=== PATIENT | male | born 1950 | race Caucasian/White ===

== ENCOUNTER 2023-06-20 09:21 | Emergency (ER) | payer MEDICARE, OTHER, SELFPAY ==
[2023-06-20] VITALS (7 sets, daily range): BP systolic 161–193; BP diastolic 78–92; PULSE 70–90; RESP 16; TEMP 36.7; O2SAT 96–99; BMI 36.2
--- NOTE | 2023-06-20 09:54 | DI.US.S_ITS ---
PROCEDURE: US SCROTUM INDICATIONS: R TESTICLE SWELLING TECHNIQUE: Real-time scanning was performed of the scrotum and testicles, with image documentation. Color and pulse Doppler interrogation was performed of both testicles. COMPARISON: None. FINDINGS: Right: Testicle is normal in size at 4.4 x 2.8 x 2.3 cm, and homogenous in echotexture. Epididymis is not definitively identified, however, there is a isoechoic extra testicular homogeneous lesion measuring 3.8 x 3.7 x 3.5 cm. No associated hypervascularity. No hydrocele or varicoceles. Scrotal wall is thickened at 1.4 cm, there is a large multiloculated hydrocele present. Left: Testicle is normal in size at 4.5 x 2.3 x 2.8 cm, and homogeneous in echotexture. Epididymis is normal in overall size and morphology. No hydrocele or varicoceles. Mild scrotal wall thickening and small hydrocele noted. 5 mm epididymal cyst Doppler: Color and pulse Doppler demonstrate normal and symmetric arterial flow in both testicles. IMPRESSION: Thickened hypervascular scrotal wall asymmetric to the right with underlying loculated hydrocele consistent with scrotal cellulitis. No evidence of testicular torsion. Right extratesticular nonvascular mass lesion, 3.8 cm Approved by: Vincenzo Viera M.D. on 06/20/2023 at 12:59
--- NOTE | 2023-06-20 11:21 | ED_ITS ---
HPI - Male Genitourinary General Chief complaint: Urogenital-Male Stated complaint: scrotum swelled up big per pt Time Seen by Provider: 06/20/23 09:27 Source: patient Mode of arrival: Ambulatory History of Present Illness HPI Narrative: 73-year-old male presents for 1 week of right-sided scrotal swelling and pain. Patient states that 1 week ago he was seen for scrotal pain and swelling at the [facility]. He was discharged on Bactrim, which he states initially improved his pain and it was almost gone 3 days later, however it gradually returned in his now worse despite being compliant with the Bactrim he was prescribed. Denies pain with urination, fevers, chills, urethral discharge. Denies history of STIs. Related Data Previous Rx's Medication Instructions Recorded albuterol sulfate 0.63 mg/3 mL 0.63 mg (3 mL) INH Q4HP PRN #30 ea 07/09/16 solution for nebulization doxycycline hyclate 100 mg capsule 100 mg PO BID #20 caps 06/20/23 hydrocodone 5 mg-acetaminophen 325 1 tab PO Q8H PRN pain #14 tabs 06/20/23 mg tablet Allergies Allergy/AdvReac Type Severity Reaction Status Date / Time Penicillins Allergy Severe Headache Verified 06/20/23 09:54 esomeprazole [From NEXIUM] Allergy Unknown Verified 06/20/23 09:54 Review of Systems Review of Systems Narrative: Negative except as noted above Patient History Social History Smoking Status: Former smoker Smoking Status: Former smoker alcohol intake frequency: 0-2 drinks per day Substance Use Type: does not use Exam Initial Vital Signs Initial Vital Signs: Vital Signs Temperature 98.1 F 06/20/23 09:47 Pulse Rate 70 06/20/23 09:47 Respiratory Rate 16 06/20/23 09:47 Blood Pressure 161/78 H 06/20/23 09:47 Pulse Oximetry 99 06/20/23 09:47 Oxygen Delivery Method Room Air 06/20/23 09:47 Const: Awake, alert, no acute distress, nontoxic appearing Cardiac: regular rate, regular rhythm RESP: unlabored, clear bilaterally, no wheezing GI: Atraumatic, soft, nontender, nondistended, no rebound, no guarding : Employment Legal [employer] present, right testicle swollen, erythematous, induration on the lower aspect. Penis normal, left testicle normal MSK: Atraumatic, full range of motion, pulses equal Skin: Warm, Dry, intact, no rashes Neuro: AO x3, CN II-XII grossly intact, moves all extremities, walks with a cane at baseline Psych: affect normal, mood normal, not suicidal, not homicidal Course Orders Ordered: ED Orders 06/20/23 09:54 US scrotum Stat 06/20/23 11:36 CBC Auto Diff [Complete Blood Count AUTO DIFF] Stat CMP [Comprehensive Metabolic Panel] Stat Vital Signs Vital signs: Vital Signs - 8 hr 06/20/23 09:47 06/20/23 12:29 06/20/23 12:29 Temperature 98.1 F Pulse Rate 70 71 Respiratory Rate 16 Blood Pressure 161/78 H 193/92 H Pulse Oximetry 99 99 Oxygen Delivery Method Room Air 06/20/23 12:30 06/20/23 12:31 06/20/23 12:31 Temperature Pulse Rate 90 70 Respiratory Rate Blood Pressure 169/85 H Pulse Oximetry 98 98 Oxygen Delivery Method 06/20/23 13:00 06/20/23 13:00 06/20/23 13:30 Temperature Pulse Rate 79 71 Respiratory Rate Blood Pressure 178/83 H Pulse Oximetry 97 97 Oxygen Delivery Method 06/20/23 13:30 06/20/23 14:00 06/20/23 14:00 Temperature Pulse Rate 73 Respiratory Rate Blood Pressure 184/88 H 180/84 H Pulse Oximetry 96 Oxygen Delivery Method MDM - Male Genitourinary Lab Data 06/20/23 11:36 06/20/23 11:36 Labs: Lab Results 06/20/23 Range/Units 11:36 WBC 7.2 (4.5-11.0) X10^3/uL RBC 4.48 L (4.5-5.9) X10^6/uL Hgb 14.0 (13.5-17.5) g/dL Hct 40.4 L (41-53) % MCV 90.2 (80-100) fL MCH 31.2 (26-34) PG MCHC 34.6 (30-36) % RDW 12.8 (11.6-14.8) % Plt Count 199 (150-400) X10^3/uL Neut % (Auto) 66.8 (50-75) % Lymph % (Auto) 18.3 L (25-40) % Dawes % (Auto) 10.4 (3-14) % Eos % (Auto) 3.3 (2-4) % Baso % (Auto) 1.2 (0-2) % Neut # (Auto) 4800 (4840-7292) /uL Lymph # (Auto) 1300 (0119-7570) /uL Dawes # (Auto) 700 (0-900) /uL Eos # (Auto) 200 (0-450) /uL Baso # (Auto) 100 (0-100) /uL Sodium 139 (137-145) mmol/L Potassium 4.4 (3.4-5.1) mmol/L Chloride 106 (98-107) mmol/L Carbon Dioxide 22 (22-32) mmol/L BUN 13 (9-20) mg/dL Creatinine 0.92 (0.66-1.25) mg/dL Estimated GFR > 60 (>60) mL/min BUN/Creatinine Ratio 14.1 (6-22) Glucose 120 H (80-110) mg/dL Calcium 9.6 (8.4-10.2) mg/dL Total Bilirubin 0.7 (0.2-1.3) mg/dL AST 31 (17-59) IU/L ALT 27 (<50) IU/L Alkaline Phosphatase 80 (38-126) U/L Total Protein 8.0 (6.3-8.2) g/dL Albumin 4.4 (3.5-5.0) g/dL Globulin 3.6 (1.7-4.1) g/dL Albumin/Globulin Ratio 1.2 (1.0-2.8) Urine Dip Bedside Urine Glucose Negative Bedside Urine Bilirubin - Negative Bedside Urine Ketone - Negative Urine Specific Ligonier 1.030 Bedside Urine Occult Blood - Negative Bedside Urine pH 5.5 Bedside Urine Protein - Negative Bedside Urine Urobilinogen - Negative Bedside Urine Nitrite - Negative Bedside Urine Leukocytes - Negative Esterase MDM Narrative Medical decision making narrative: Well-appearing patient with persistent scrotal swelling and pain. Scrotum is tender to touch with erythema and induration. Less suspicious for torsion due to duration of onset and intact cremasteric reflex. We will order labs and ultrasound imaging. Laboratory work shows no leukocytosis, normal creatinine. Urinalysis negative for infection. Ultrasound of the scrotum shows a noninfectious cystic hydrocele, thickening of the scrotal skin concerning for cellulitis, no abscess or other concerning findings. Patient resting comfortably in bed, he was informed of his lab and imaging results. We will change Bactrim to doxycycline. Sent to pharmacy of choice. Patient was counseled that if he does not notice improvement in 48 hours he should return as he may need IV antibiotics due to failure of outpatient treatment. Patient says that [facility] and we will monitor his scrotal swelling during that time. Pain medication sent to pharmacy of choice. Also counseled on testicular elevation and ice application. ED return precautions discussed at bedside. Patient expressed understanding of the plan and is in agreement at this time. All questions answered at the time of discharge. Discharge Plan Departure Patient Disposition: Home Clinical Impression: Cellulitis, scrotum Instructions: DI for Cellulitis -- Adult Prescriptions: New doxycycline hyclate 100 mg capsule 100 mg PO BID Qty: 20 0RF hydrocodone-acetaminophen 5-325 mg tablet 1 tab PO Q8H PRN (Reason: pain) Qty: 14 0RF No Action albuterol sulfate 0.63 MG/3 ML solution for nebulization 0.63 mg INH Q4HP PRNQty: 30 0RF Stand Alone Forms: Patient Portal/API
[2023-06-20 11:44] LABS: Add Manual Diff / Slide Review NO; Basophils Absolute Auto 100 /uL (0-100); Basophils Percent Auto 1.2 % (0-2); Eosinophils Absolute Auto 200 /uL (0-450); Eosinophils Percent Auto 3.3 % (2-4); Hematocrit 40.4 % (41-53); Lymphocytes Absolute Auto 1300 /uL (1100-4500); Lymphocytes Percent Auto 18.3 % (25-40); Mean Corpuscular HGB Conc 34.6 % (30-36); Mean Corpuscular Hemoglobin 31.2 PG (26-34); Mean Corpuscular Volume 90.2 fL (80-100); Monocytes Absolute Auto 700 /uL (0-900); Monocytes Percent Auto 10.4 % (3-14); Neutrophils Absolute Auto 4800 /uL (1500-7000); Neutrophils Percent Auto 66.8 % (50-75); Platelet Count 199 X10^3/uL (150-400); Red Blood Cell Count 4.48 X10^6/uL (4.5-5.9); Red Cell Distribution Width 12.8 % (11.6-14.8); White Blood Cell Count 7.2 X10^3/uL (4.5-11.0)
[2023-06-20 12:07] LABS: Alanine Aminotransferase 27 IU/L (<50); Albumin 4.4 g/dL (3.5-5.0); Albumin Globulin Ratio 1.2 (1.0-2.8); Alkaline Phosphatase 80 U/L (38-126); Aspartate Aminotransferase 31 IU/L (17-59); BUN Creatinine Ratio 14.1 (6-22); Bilirubin Total 0.7 mg/dL (0.2-1.3); Blood Urea Nitrogen 13 mg/dL (9-20); Calcium 9.6 mg/dL (8.4-10.2); Carbon Dioxide 22 mmol/L (22-32); Chloride 106 mmol/L (98-107); Estimated Glomerular Filt Rate > 60 mL/min (>60); Globulin 3.6 g/dL (1.7-4.1); Glucose 120 mg/dL (80-110); HEMOLYSIS < 15 (0-50); Potassium 4.4 mmol/L (3.4-5.1); Sodium 139 mmol/L (137-145)
== END 2023-06-20 14:21 | disposition home or self-care (01) ==
PROVIDERS: Emergency Provider Emergency Medicine
DX: N49.2 Inflammatory disorders of scrotum (principal)
CPT/HCPCS: 36415; 76870; 80053; 81003; 85025; 93975; 99284

== ENCOUNTER → 2023-09-03 08:46 | Outpatient (CLI) | payer OTHER, SELFPAY ==
--- NOTE | 2023-09-03 08:48 | DI.ECHO.S_ITS ---
[facility]+ [facility] : : [address] : : [place] : : [id number] : : Phone: [phone] Echocardiogram Report + + :Name: CARLOS EPSTEIN Study Date: 09/03/2023 Height: 71 in : :Hospital ReadingLocation: Weight: 266 lb : : Gender: Male BSA: 2.4 m2 : :: 1950 Age: 73 yrs BP: 174/97 mmHg: :Reason For Study: ENCOUNTER FOR GENERAL ADULT EXAMINATION : :Ordering Physician: JAMES, : :DAISHA Performed By: Valery Shipley : :Referring: DAISHA RAMIREZ : + + Interpretation Summary Normal sinus rhythm and uncontrolled hypertension. Normal LV size; mild concentric LVH; normal wall motion and LV systolic function. EF is 55-60%. Mild LA enlargement; otherwise normal chamber sizes. No significant valvular abnormalities. No prior study available for comparison. Procedure: A two-dimensional transthoracic echocardiogram with color flow and Doppler was performed. The study quality was technically adequate. There is no prior echocardiogram noted for this patient. The patient was in sinus rhythm with heart rates between 52-67 bpm during the exam. Left Ventricle: The left ventricle is normal in size. There is mild concentric left ventricular hypertrophy. The ejection fraction is estimated to be 55-60%. Right Ventricle: The right ventricle is normal in size and function. Atria: The left atrium is mildly dilated. The right atrium is normal in size. There is no Doppler evidence for an interatrial shunt. Mitral Valve: The mitral valve is normal in structure and function. There is mild mitral regurgitation. Aortic Valve: The aortic valve is trileaflet. The aortic valve is slightly calcified. There is moderate aortic valve sclerosis. The peak aortic velocity is 1.9 m/sec. The aortic valve mean gradient is 8 mmHg. The calculated aortic valve area is 1.6 cm2. No aortic regurgitation is present. Tricuspid Valve: The tricuspid valve is normal in structure and function. There is mild tricuspid regurgitation. The right ventricular systolic pressure is estimated to be at least 36 mmHg based on an estimated right atrial pressure of 3 mm Hg. Pulmonic Valve: The pulmonic valve leaflets are thin and pliable; valve motion is normal. There is mild pulmonic regurgitation. Great Vessels: The aortic root is normal size. The ascending aorta is normal in size. The IVC is of normal diameter and collapses greater than 50% with a sniff. This suggests a low right atrial pressure of 3 mm Hg. Pericardium/ Pleura There is no pericardial effusion. There is no pleural effusion. MMode/2D Measurements & Calculations LVIDd: 5.3 cm LVOT diam: 2.1 cm LVIDs: 3.3 cm Ao root diam: 3.3 cm FS: 37.3 % asc Aorta Diam: 3.7 cm IVSd: 1.3 cm Ao Arch Diam (Prox Trans): 4.0 cm LVPWd: 1.1 cm LV amezcua. diameter/BSA (cm/m^2): 2.2 LV sys. diameter/BSA (cm/m^2): 1.4 LA A2 area: 23.1 cm2 RA long axis: 6.1 cm LA A4 area: 28.4 cm2 RA area: 22.8 cm2 LA length (vol): 6.6 cm RA vol: 71.8 ml LA vol: 84.7 ml RA : 30.2 ml/m2 LA vol index: 35.6 ml/m2 IVC diam: 1.9 cm RVD1 (basal): 4.0 cm TAPSE: 2.0 cm Doppler Measurements & Calculations Ao V2 max: 195.6 cm/sec LVOT Max Tomas: 87.8 cm/sec Ao V2 mean: 135.2 cm/sec LV V1 max P.1 mmHg Ao max P.8 mmHg LV V1 VTI: 19.2 cm Ao mean P.3 mmHg HUMERA(I,D): 1.6 cm2 Ao V2 VTI: 43.2 cm HUMERA(V,D): 1.6 cm2 sev ratio: 0.45 HUMERA indexed to BSA (cm^2/m^2): 0.68 MV E max tomas: 85.7 cm/sec TR max tomas: 288.1 cm/sec MV A max tomas: 53.2 cm/sec TR max P.2 mmHg MV E/A: 1.6 PA V2 max: 125.5 cm/sec Med Peak E' Tomas: 6.2 cm/sec PA V2 mean: 82.0 cm/sec E/E' med: 13.9 PA mean P.1 mmHg Lat Peak E' Tomas: 8.4 cm/sec PA pr(Accel): 17.3 mmHg E/E' lat: 10.2 E/e' average: 12.1 MV dec time: 0.28 sec SV(LVOT): 69.5 ml Electronically signed by: Chio Trevizo M.D. on Reading Physician:09/04/2023 01:20 AM
== END ==
PROVIDERS: Referring Provider Physician Assistant; Visit Provider Orthopaedic Surgery
DX: Z00.00 Encounter for general adult medical examination without abnormal findings (principal); I08.3 Combined rheumatic disorders of mitral, aortic and tricuspid valves
CPT/HCPCS: 93306

== ENCOUNTER → 2025-01-19 09:32 | Outpatient (CLI) | payer OTHER, SELFPAY | LOC: RESP 09:34 | PROVIDERS: Referring Provider Nurse Practitioner Family; Visit Provider Nurse Practitioner Family | DX: J44.9 Chronic obstructive pulmonary disease, unspecified (principal); Z87.891 Personal history of nicotine dependence; R94.2 Abnormal results of pulmonary function studies | CPT/HCPCS: 94060; 94726; 94729 ==